=== PATIENT | male | born 2000 | race Caucasian/White ===

== ENCOUNTER 2021-03-09 17:12 | Emergency (ER) | payer OTHER ==
[~2021-03-09 17:12] MED LIST: BUSPAR; CONCERTA18 MG; ZOLOFT50 MG
== END 2021-03-09 17:59 | disposition left against medical advice (07) ==
LOC: M.ERS 17:12
DX: H92.01 Otalgia, right ear (principal); Z53.21 Procedure and treatment not carried out due to patient leaving prior to being seen by health care provider